=== PATIENT | female | born 1995 | race Caucasian/White ===

== ENCOUNTER 2017-12-18 14:38 | Emergency (ER) | payer MEDICAID, OTHER ==
[~2017-12-18] VITALS: Ht 175.3 cm; Wt 136.1 kg
[2017-12-18 15:00] VITALS: BP 148/81
== END 2017-12-18 15:51 | disposition home or self-care (01) ==
LOC: ER 14:41
DX: F41.9 Anxiety disorder, unspecified (principal); Z88.8 Allergy status to other drugs, medicaments and biological substances; Z88.0 Allergy status to penicillin; Z88.2 Allergy status to sulfonamides; Z88.1 Allergy status to other antibiotic agents; Z76.0 Encounter for issue of repeat prescription

== ENCOUNTER 2018-03-12 08:04 | Emergency (ER) | payer MEDICAID ==
[~2018-03-12] VITALS: Ht 175.3 cm; Wt 143.3 kg
[2018-03-12 08:25] VITALS: BP 133/99
[2018-03-12 09:32] LABS: Urine Bacteria FEW /hpf (None Seen); Urine Blood 2+ /uL (Negative); Urine Mucus FEW (None Seen); Urine Specific Gravity 1.023 (1.001-1.035); Urine WBC 8 /hpf (0 - 5)
== END 2018-03-12 09:41 | disposition home or self-care (01) ==
LOC: ER 08:04
DX: N93.9 Abnormal uterine and vaginal bleeding, unspecified (principal); N39.0 Urinary tract infection, site not specified; Z32.02 Encounter for pregnancy test, result negative; Z88.0 Allergy status to penicillin; Z88.1 Allergy status to other antibiotic agents; Z88.2 Allergy status to sulfonamides
CPT/HCPCS: 36415; 81001; 81025; 84702

== ENCOUNTER 2018-04-25 19:47 | Emergency (ER) | payer MEDICAID ==
[~2018-04-25] VITALS: Ht 170.2 cm; Wt 145.1 kg
[2018-04-25 20:00] VITALS: BP 130/84
== END 2018-04-25 21:45 | disposition home or self-care (01) ==
LOC: ER 19:47
DX: H60.91 Unspecified otitis externa, right ear (principal); Z88.2 Allergy status to sulfonamides; Z88.0 Allergy status to penicillin; Z88.1 Allergy status to other antibiotic agents; Z88.8 Allergy status to other drugs, medicaments and biological substances

== ENCOUNTER 2018-09-11 09:10 | Observation (INO) | payer MEDICAID ==
[2018-09-11] MEDS ORDERED: PREN-96 PO (12:16)
== END 2018-09-11 11:47 | disposition home or self-care (01) | DRG 566 ==
LOC: LDRP 09:10
PROVIDERS: ADMIT Specialist; ATTEND Specialist
DX: O99.89 Other specified diseases and conditions complicating pregnancy, childbirth and the puerperium (principal); M54.5 Low back pain; Z3A.24 24 weeks gestation of pregnancy
CPT/HCPCS: 59025; 76815; 81002; 99284; G0378

== ENCOUNTER 2018-09-11 12:03 | Emergency (ER) | payer MEDICAID ==
[~2018-09-11] VITALS: Ht 162.6 cm; Wt 83.9 kg
[2018-09-11 12:12] VITALS: BP 130/79
[2018-09-11] MEDS ORDERED: PREN-96 PO (12:16)
[2018-09-11 14:09] LABS: Urine Bacteria FEW /hpf (None Seen); Urine Blood Negative /uL (Negative); Urine Mucus FEW (None Seen); Urine Specific Gravity 1.021 (1.001-1.035); Urine WBC 8 /hpf (0 - 5)
== END 2018-09-11 14:48 | disposition home or self-care (01) ==
LOC: ER 12:03
DX: O23.42 Unspecified infection of urinary tract in pregnancy, second trimester (principal); O26.892 Other specified pregnancy related conditions, second trimester; M54.5 Low back pain; R51 Headache; Z88.0 Allergy status to penicillin; Z88.2 Allergy status to sulfonamides; Z88.1 Allergy status to other antibiotic agents; Z88.8 Allergy status to other drugs, medicaments and biological substances; Z3A.24 24 weeks gestation of pregnancy; V49.9XXA Car occupant (driver) (passenger) injured in unspecified traffic accident, initial encounter; Y93.89 Activity, other specified; Y99.8 Other external cause status; Y92.410 Unspecified street and highway as the place of occurrence of the external cause
CPT/HCPCS: 81001

== ENCOUNTER 2018-12-02 09:30 | Observation (INO) | payer MEDICAID ==
[~2018-12-02 09:30] MED LIST: PREN-96 PO
== END 2018-12-02 10:19 | disposition home or self-care (01) | DRG 566 ==
LOC: LDRP 09:30
PROVIDERS: ADMIT Obstetrics & Gynecology; ATTEND Obstetrics & Gynecology
DX: O26.853 Spotting complicating pregnancy, third trimester (principal); Z3A.36 36 weeks gestation of pregnancy
CPT/HCPCS: 59025; 81002; G0378

== ENCOUNTER 2018-12-23 19:22 | Emergency (ER) | payer MEDICAID ==
[~2018-12-23] VITALS: Ht 175.3 cm; Wt 147.9 kg
[2018-12-23 20:07] LABS: Basophils # (auto) 0.1 uL; Basophils % (auto) 0.4 % (0.0-2.0); Eosinophils # (auto) 0.1 uL; Eosinophils % (auto) 0.6 % (0.0-7.0); Hematocrit 32.2 % (36.0-46.0); Hemoglobin 10.2 g/dL (12.2-16.2); Lymphocytes # (auto) 1.9 uL; Lymphocytes % (auto) 13.1 % (10.0-50.0); Mean Corpuscular Hemoglobin 24.1 pg (28.0-32.0); Mean Corpuscular Hgb Conc. 31.6 g/dL (32.0-36.0); Mean Corpuscular Volume 76.3 fL (80.0-100.0); Monocytes # (auto) 1.1 uL; Monocytes % (auto) 7.5 % (0.0-12.0); Neutrophils # (auto) 11.2 uL; Neutrophils % (auto) 78.4 % (37.0-80.0); Platelet Count (auto) 429 10^3/uL (140-450); Red Blood Cells 4.22 10^6/uL (4.0-5.20); Red Cell Distribution Width 16.5 % (11.8-14.3); White Blood Cell 14.2 10^3/uL (4.4-10.8)
[2018-12-23 20:25] LABS: Albumin 2.8 g/dL (3.4-5.0); Calcium 9.6 mg/dL (8.5-10.1); Potassium 4.3 mmol/L (3.5-5.1)
[2018-12-23 20:28] LABS: BUN/Creatinine Ratio 23.9; Bilirubin, Total 0.3 mg/dL (0.2-1.0); Total Protein 8.7 g/dL (6.4-8.2)
[2018-12-24] MEDS ORDERED: cefTRIAXone 1GM/50ML D5W 50 ML IV ONE (02:30)
[2018-12-24 03:30] VITALS: BP 116/75
[2018-12-24] MEDS ORDERED: VANCOMYCIN 1GM/250ML 250 ML IV ONE (03:30)
== END 2018-12-24 05:13 | disposition home or self-care (01) ==
LOC: ER 19:27
DX: L03.311 Cellulitis of abdominal wall (principal); Z88.0 Allergy status to penicillin; Z88.1 Allergy status to other antibiotic agents; Z88.2 Allergy status to sulfonamides
CPT/HCPCS: 36415; 74176; 80053; 85025; 99284; J3370

== ENCOUNTER 2019-04-27 11:08 | Emergency (ER) | payer MEDICAID ==
[~2019-04-27] VITALS: Ht 175.3 cm; Wt 149.7 kg
[2019-04-27 14:02] VITALS: BP 140/90
== END 2019-04-27 14:31 | disposition home or self-care (01) ==
LOC: ER 11:08
DX: J03.90 Acute tonsillitis, unspecified (principal); J45.909 Unspecified asthma, uncomplicated; I10 Essential (primary) hypertension

== ENCOUNTER 2020-07-20 19:03 | Emergency (ER) | payer MEDICAID ==
[~2020-07-20] VITALS: Ht 175.3 cm; Wt 59.4 kg
[2020-07-20 19:03] VITALS: BP 154/91
== END 2020-07-20 20:56 | disposition left against medical advice (07) ==
LOC: ER 19:04
DX: O20.8 Other hemorrhage in early pregnancy (principal); Z53.21 Procedure and treatment not carried out due to patient leaving prior to being seen by health care provider; Z3A.01 Less than 8 weeks gestation of pregnancy